=== PATIENT | female | born 1930 | race Caucasian/White ===

== ENCOUNTER 2016-12-16 12:28 | Emergency (ER) | payer MEDICARE, OTHER ==
--- NOTE | 2016-12-16 16:18 | NUR ---
Pt referral for possible placement. Spoke with pt and pt dtr.Pt states she is doing well at home and has [facility] ([facility]) and [facility] that she recieves for services in the home. Pt dtr states she has no concerns with pt going home. List of SNU options were given for future reference if needed. Pt advised to call [facility] social work if any needs come up upon return to home.
--- NOTE | 2016-12-23 18:56 | ER ---
ADMIT: 12/16/2016 RM/LOC: ER [facility] MR#: [id number] [facility] [id number] [place], [place] [id number] MARIAM AVALOS [address] [place] [address] Emergency Room Report SEX: F AGE: 86 : 1930 DATE: 12/16/2016 ADDENDUM: This is an 86-year-old white female coming in with kind of nonspecific complaints. 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 She is on Coumadin. Her CT was negative. Debilitated question whether she can go home or not. Speaking with Dr. Crowe either they are going to try and place her through the ED or the hospital or daughter will take her home and then deal with that as an outpatient. CONDITION ON DISCHARGE: Fair. Deo Fajardo MD/ stevo JOB #: [id number] CC: Deo Fajardo MD, Attending Physician Jaja Young MD, Family Physician
== END 2016-12-16 16:45 | disposition home or self-care (01) ==
LOC: ER 12:28
DX: I82.402 Acute embolism and thrombosis of unspecified deep veins of left lower extremity (principal); R53.1 Weakness; E11.9 Type 2 diabetes mellitus without complications; I10 Essential (primary) hypertension; I25.10 Atherosclerotic heart disease of native coronary artery without angina pectoris; E78.5 Hyperlipidemia, unspecified; Z95.1 Presence of aortocoronary bypass graft; Z90.49 Acquired absence of other specified parts of digestive tract; Z90.710 Acquired absence of both cervix and uterus; Z79.01 Long term (current) use of anticoagulants; Z79.82 Long term (current) use of aspirin; Z79.899 Other long term (current) drug therapy